=== PATIENT | female | born 1985 | race Caucasian/White ===

== ENCOUNTER 2018-12-16 05:10 | Inpatient (IN) | payer MEDICAID ==
[~2018-12-16] VITALS: Ht 152.4 cm; Wt 65.7 kg
[2018-12-16 05:35] VITALS: Ht 152.4 cm; Wt 65.7 kg
[2018-12-16] MEDS: LACTATED RINGER'S 1,000 ML IV SCH ×3 (05:50→08:04)
[2018-12-16] MEDS ORDERED: OXYTOCIN 30 UNITS/LR 500 ML IV SCH (06:00)
[2018-12-16] MEDS ORDERED: CARBOPROST 250 MCG INJ IM PRN ×2 (06:00→10:30)
[2018-12-16] MEDS ORDERED: METHYLERGONOVINE 0.2 MG INJ IM PRN ×2 (06:00→10:30)
[2018-12-16] MEDS ORDERED: CITRIC ACID/NA CITRATE 30 ML CUP PO PRN ×2 (06:00)
[2018-12-16] MEDS ORDERED: MISOPROSTOL 200 MCG TAB PR PRN ×2 (06:00→10:30)
[2018-12-16] MEDS ORDERED: CEFAZOLIN 2 GM/50 ML (PMX) 50 ML IVPB SCH (06:00)
[2018-12-16] MEDS ORDERED: OXYTOCIN 30 UNITS/LR 500 ML IV PRN ×2 (06:00→10:30)
[2018-12-16] MEDS ORDERED: AZITHROMYCIN 500MG/NS (PMX) 250 ML IV SCH (06:00)
[2018-12-16] MEDS ORDERED: FENTAnyl 2MCG/ML-ROPIV 0.2% 100 ML ONE (07:27)
[2018-12-16] MEDS ORDERED: TRIMETHOBENZAMIDE 100 MG/ML VIAL IM PRN ×3 (07:30→10:00)
[2018-12-16] MEDS ORDERED: ONDANSETRON 4 MG INJ IV PRN ×3 (07:30→10:00)
[2018-12-16] MEDS ORDERED: NALOXONE (0.4 MG/ML) INJ IV PRN ×2 (07:30→10:00)
[2018-12-16] MEDS ORDERED: FENTAnyl 2MCG/ML-ROPIV 0.2% 100 ML BAG EPI SCH (07:30)
[2018-12-16] MEDS ORDERED: DIPHENHYDRAMINE 50 MG INJ IV PRN ×3 (07:30→10:00)
[2018-12-16] MEDS ORDERED: morphine SULFATE/PF (10 MG/10 ML) INJ ONE (09:28)
[2018-12-16] MEDS ORDERED: LIDOCAINE 2% (SDV) 5 ML INJ ONE (09:28)
[2018-12-16] MEDS ORDERED: OXYTOCIN 10 UNIT INJ ONE (09:53)
[2018-12-16] MEDS ORDERED: hydrALAzine 20 MG INJ IV PRN (10:00)
[2018-12-16] MEDS ORDERED: morphine 2 MG INJ IV PRN ×2 (10:00)
[2018-12-16] MEDS ORDERED: MEPERIDINE 25 MG INJ IV PRN (10:00)
[2018-12-16] MEDS ORDERED: FENTAnyl 50 MCG/ML VIAL IV PRN ×3 (10:00)
[2018-12-16] MEDS ORDERED: EPHEDrine 25 MG/5 ML SYG IV PRN (10:00)
[2018-12-16] MEDS ORDERED: LABETALOL HCL 20MG INJ IV PRN (10:00)
[2018-12-16] MEDS ORDERED: IPRATROPIUM (NEB) 0.5 MG/2.5 ML AMP HHN PRN (10:00)
[2018-12-16] MEDS ORDERED: KETOROLAC 30 MG INJ IV PRN (10:00)
[2018-12-16] MEDS ORDERED: NALBUPHINE HCL (10 MG/1 ML) INJ IV PRN (10:00)
[2018-12-16] MEDS ORDERED: ALBUTEROL 0.083% (NEB) 2.5 MG/3 ML AMP HHN PRN (10:00)
[2018-12-16] MEDS ORDERED: HYDROmorphONE 1 MG/5 ML IV SYRINGE IV PRN ×3 (10:00)
[2018-12-16] MEDS ORDERED: MIDAZOLAM 1 MG/ML 2 ML INJ IV PRN (10:00)
[2018-12-16] MEDS ORDERED: OXYCODONE/ACETAMINOPHEN (5/325) TAB PO PRN ×2 (10:30)
[2018-12-16] MEDS ORDERED: NACL 0.9% 3 ML SYG IV SCH (10:30)
[2018-12-16] MEDS: OXYTOCIN 30 UNITS/LR 500 ML IV SCH ×2 (10:37→15:04)
[2018-12-16 13:15] VITALS: BP 119/62; PULSE 75; RESP 18
[2018-12-16 13:56] VITALS: BP 119/62; PULSE 75; RESP 18
[2018-12-16] MEDS: IBUPROFEN 800 MG TAB PO SCH ×2 (14:00→22:00)
[2018-12-16 15:00] VITALS: BP 110/64; PULSE 78; RESP 18
[2018-12-16 16:10] VITALS: BP 108/58; PULSE 73; RESP 18
[2018-12-16] MEDS: CEFAZOLIN 2 GM/50 ML (PMX) 50 ML IVPB SCH ×2 (17:02→23:37)
[2018-12-16] MEDS: KETOROLAC 30 MG INJ IV PRN (18:50)
[2018-12-16 19:45] VITALS: BP 113/57; PULSE 76; RESP 18
[2018-12-16 23:49] VITALS: BP 115/63; PULSE 75; RESP 18
[2018-12-17 03:24] VITALS: BP 102/55; PULSE 73; RESP 18
[2018-12-17] MEDS: KETOROLAC 30 MG INJ IV PRN (03:39)
[2018-12-17] MEDS: LACTATED RINGER'S 1,000 ML IV SCH ×3 (04:42→20:00)
[2018-12-17] MEDS: IBUPROFEN 800 MG TAB PO SCH ×3 (06:00→21:41)
[2018-12-17] MEDS: CEFAZOLIN 2 GM/50 ML (PMX) 50 ML IVPB SCH (07:18)
[2018-12-17 07:45] VITALS: BP 99/64; PULSE 73; RESP 18
[2018-12-17] MEDS: LANOLIN HPA 1 PKT TOP PRN (14:18)
[2018-12-17 16:00] VITALS: BP 118/57; PULSE 75; RESP 18
[2018-12-17 20:40] VITALS: BP 111/63; PULSE 80; RESP 18
[2018-12-17] MEDS: FERROUS SULFATE (EC) 325 MG TAB PO SCH (21:41)
[2018-12-18 04:00] VITALS: BP 107/55; PULSE 75; RESP 17
[2018-12-18] MEDS: LACTATED RINGER'S 1,000 ML IV SCH (04:00)
[2018-12-18] MEDS: IBUPROFEN 800 MG TAB PO SCH ×3 (05:36→21:40)
[2018-12-18 08:00] VITALS: BP 126/61; PULSE 62; RESP 18
[2018-12-18] MEDS: FERROUS SULFATE (EC) 325 MG TAB PO SCH ×2 (09:55→21:40)
[2018-12-18 16:50] VITALS: BP 118/56; PULSE 73; RESP 18
[2018-12-18] MEDS: LANOLIN HPA 1 PKT TOP PRN (17:23)
[2018-12-18 21:00] VITALS: BP 118/73; PULSE 79; RESP 17
[2018-12-19 04:00] VITALS: BP 111/69; PULSE 70; RESP 18
[2018-12-19] MEDS: IBUPROFEN 800 MG TAB PO SCH (05:36)
[2018-12-19 08:00] VITALS: BP 120/59; PULSE 70; RESP 20
[2018-12-19] MEDS: LANOLIN HPA 1 PKT TOP PRN (09:21)
[2018-12-19] MEDS: FERROUS SULFATE (EC) 325 MG TAB PO SCH (09:22)
== END 2018-12-19 12:55 | disposition home or self-care (01) | DRG 788 ==
LOC: L-D 05:10 → PP1 13:05
PROVIDERS: ADMIT Obstetrics & Gynecology; ATTEND Obstetrics & Gynecology
PROC: 10D00Z1 Extraction of Products of Conception, Low, Open Approach (ICD-10-PCS; principal; 2018-12-16 10:30)
DX: O65.5 Obstructed labor due to abnormality of maternal pelvic organs (principal); O34.211 Maternal care for low transverse scar from previous cesarean delivery; Z3A.39 39 weeks gestation of pregnancy; Z37.0 Single live birth
CPT/HCPCS: 62322; 85025; 85610; 85730; 86592; 86850; 86900; 86901; 87340; 99464; J0456; J0690; J1885; J2210; J2274; J2590; J3010; J7120